=== PATIENT | male | born 1960 ===

== ENCOUNTER 2022-11-04 07:30 | Day surgery (SDC) | payer BC ==
[~2022-11-04 07:30] MED LIST: Lactated Ringers 1,000 ML IV SCH; Sodium Chloride 0.9% 10 ML Syringe FLUSH PRN; Sodium Chloride 0.9% 10 ML Syringe FLUSH SCH
[2022-11-04] MEDS ORDERED: Propofol 200 MG/20 ML SDV ONE (08:04)
[2022-11-04] MEDS ORDERED: Midazolam 1 MG/ML 2 ML SDV ONE ×2 (08:05→09:47)
[2022-11-04] MEDS ORDERED: Albuterol 0.083% 2.5 MG/3 ML Neb Soln NEB SCH (08:21)
[2022-11-04] MEDS ORDERED: Albuterol 0.083% 2.5 MG/3 ML Neb Soln ONE (08:29)
[2022-11-04] MEDS ORDERED: Dexamethasone 4 MG/ML 5 ML MDV ONE (09:47)
[2022-11-04] MEDS ORDERED: Ondansetron 4 MG/2 ML SDV ONE (09:47)
[2022-11-04] MEDS ORDERED: Lidocaine 1% 0 ML ONE (09:47)
[2022-11-04] MEDS ORDERED: fentaNYL 250 MCG/5 ML SDV ONE (09:47)
[2022-11-04] MEDS ORDERED: Ketorolac 30 MG/ML SDV ONE (09:47)
[2022-11-04] MEDS ORDERED: ceFAZolin 2 GM Vial ONE (09:47)
[2022-11-04] MEDS ORDERED: Rocuronium 50 MG/5 ML Vial ONE (09:47)
== END 2022-11-04 10:30 | disposition home or self-care (01) ==
LOC: JD.SDS 07:30
PROVIDERS: ATTEND Surgery
DX: Z12.11 Encounter for screening for malignant neoplasm of colon (principal); K57.30 Diverticulosis of large intestine without perforation or abscess without bleeding; K64.8 Other hemorrhoids; F17.200 Nicotine dependence, unspecified, uncomplicated
CPT/HCPCS: J0690; J1100; J1885; J2250; J2405; J2704; J3010; J3490; J7120; J7620-GY